=== PATIENT | male | born 1990 | race Caucasian/White ===

== ENCOUNTER → 2018-04-12 15:57 | Outpatient (CLI) | payer OTHER, SELFPAY ==
--- NOTE | 2018-04-12 16:01 | DI.RAD.S_ITS ---
PROCEDURE: XR FOOT LT MIN 3V INDICATIONS: pain and bruising of left foot TECHNIQUE: 3 views of the foot were acquired. COMPARISON: None. FINDINGS: Bones: No fractures or dislocations. No suspicious bony lesions. Posterior calcaneal spur Soft tissues: No tibiotalar joint effusion. Achilles tendon appears normal. IMPRESSION: No fracture Dictated by: Alan Hatfield M.D. on 04/12/2018 at 16:18 Approved by: Alan Hatfield M.D. on 04/12/2018 at 16:21
== END ==
PROVIDERS: Visit Provider Physician Assistant
DX: M79.672 Pain in left foot (principal)
CPT/HCPCS: 73630

== ENCOUNTER 2018-11-29 20:19 | Emergency (ER) | payer OTHER, SELFPAY ==
[2018-11-29 20:23] VITALS: BP 123/72; PULSE 86; RESP 16; TEMP 36.2; O2SAT 100
[2018-11-29] MEDS: TET,DIPH,PERTUSS(ACELL),VAC/PF 0.5 ML SYRINGE IM (20:35)
--- NOTE | 2018-11-29 21:33 | ED_ITS ---
HPI - Wound/Laceration General Chief Complaint: Wound/Laceration Stated Complaint: DOG BITE TO RIGHT HAND Time Seen by Provider: 11/29/18 20:36 Source: patient Mode of arrival: ambulatory Limitations: no limitations History of Present Illness HPI narrative: Patient is a 28-year-old male here for evaluation of injury sustained to his right hand when he was bit by his dog. He states that his dog was a puppy. He states that he reached out all the dog was eating of the dog bit him. He states the dog has been acting normal. Is up-to-date on shots. Patient does not know when his last tetanus shot was. Related Data Home Medications Medication Instructions Recorded Confirmed ibuprofen 200 mg PO PRN #0 04/26/16 04/12/18 Previous Rx's Medication Instructions Recorded amoxicillin-pot clavulanate 1 tab PO BID 10 Days #20 tab 11/29/18 [Augmentin] Allergies Allergy/AdvReac Type Severity Reaction Status Date / Time No Known Drug Allergies Allergy Verified 11/29/18 20:34 Review of Systems Constitutional Denies fever(s) ENT Ears, Nose, Mouth, and Throat: Denies disequilibrium Musculoskeletal Denies myalgias, Denies arthralgias and Denies tingling Integumentary/Breasts Comments: Cut to the palm of the right hand and cuts to the back of the right hand Neurologic Denies behavioral changes, Denies tingling and Denies disequilibrium Psychiatric Denies behavioral changes Hematologic/Lymphatic Denies easy bleeding and Denies easy bruising [facility] Medical History Patient denies medical problems (Acute) Social History Smoking Status: Former smoker Social History Smoking Status: Former smoker Exam Initial Vital Signs Initial Vital Signs: Vital Signs Temperature 97.1 F L 11/29/18 20:23 Pulse Rate 86 11/29/18 20:23 Respiratory Rate 16 11/29/18 20:23 Blood Pressure 123/72 11/29/18 20:23 Pulse Oximetry 100 11/29/18 20:23 Const General: cooperative, comfortable, well developed and well groomed Orientation: alert, awake and oriented x3 Cardio Pulses: radial pulses present on the right Skin Other: Patient with superficial abrasions on the proximal aspect of the dorsum of the right hand. There is no active bleeding. Patient with a 2 cm cut to the palm of the right hand just proximal to the MCP joint of the middle finger. Neuro General: alert and awake Sensory Exam: no sensory deficits noted Extrem General: normal to inspection and capillary refill normal Psych Appearance: grossly normal and well kempt Procedures Laceration Repair Laceration 1: Site: hand Side (If applicable): right Size (cm): 2 Description: linear Depth: simple, single layer Local Anesthetic: lidocaine 1% Amount of anesthesia used (mL): 3 Pre-repair: wound explored, irrigated extensively and deep structures intact Skin layer closed with: nylon Size (cm): 4-0 Number of sutures: 2 Technique: simple, interrupted Course Orders Ordered: Discontinued Medications Diphtheria/Tetanus/Acell Pertussis (Adacel) 0.5 ml IM .ONCE ONE Stop: 11/29/18 20:33 Last Admin: 11/29/18 20:35 Dose: 0.5 ml Lidocaine HCl (Xylocaine 1% (Pf)) 2 ml INJ NOW ONE Stop: 11/29/18 21:34 Last Admin: 11/29/18 21:36 Dose: 2 ml Vital Signs - 8 hr 11/29/18 20:23 11/29/18 22:19 Temperature 97.1 F L Pulse Rate 86 70 Respiratory Rate 16 15 Blood Pressure 123/72 118/70 Pulse Oximetry 100 100 MDM - Wound/Laceration MDM Narrative Medical decision making narrative: The abrasions on the back of the right hand needed no intervention here in the emergency department. The cut to the palm of the right hand was irrigated. It was closed as described above. No deep structures were injured. Patient's tetanus was updated. Given the fact that he was bitten by dog on his hand we will start him on antibiotics to prevent any infections. Patient was given return precautions and care instructions. He expressed understanding and agreement plan. Discharge Plan Departure Patient Disposition: Home Clinical Impression: Laceration Dog bite Qualifiers: Encounter type: initial encounter Qualified Code(s): W54.0XXA - Bitten by dog, initial encounter Discharge Date/Time: 11/29/18 22:10 Interventions: ED Discharge Assessment Last Done: 11/29/18 22:19 Instructions: DI for Laceration Repair, DI for Dog Bite Activity Restrictions/Additional Instructions: Keep your hand clean. You can wash your hands like normal you can use soap and water like normal. The stitches need to be removed in 7-10 days. Take the antibiotics as directed. Return to the emergency department for any new or worsening symptoms Prescriptions: New amoxicillin-pot clavulanate [Augmentin] 875-125 mg tablet 1 tab PO BID 10 Days Qty: 20 RF: 0 No Action ibuprofen 200 MG capsule 200 mg PO PRNQty: 0 RF: 0
[2018-11-29] MEDS: LIDOCAINE 1% (PF) INJ 2 ML INJ (21:36)
[2018-11-29 22:19] VITALS: BP 118/70; PULSE 70; RESP 15; O2SAT 100
--- NOTE | 2018-11-29 22:33 | PC.NURSE ---
PT states was training his puppy and dog bit his right hand leaving a puncture wound to right palm and scratch to back of hand. Bleeding controlled. Pt tetanus updated today.
== END 2018-11-29 22:10 | disposition home or self-care (01) ==
PROVIDERS: Emergency Provider Emergency Medicine
DX: S61.411A Laceration without foreign body of right hand, initial encounter (principal); W54.0XXA Bitten by dog, initial encounter; Z23 Encounter for immunization
CPT/HCPCS: 12001; 90471; 99282; 99283; 90715